=== PATIENT | female | born 1960 | race Caucasian/White ===

== ENCOUNTER 2022-06-25 14:16 | Emergency (ER) | payer MEDICAID ==
[~2022-06-25] VITALS: Ht 162.5 cm; Wt 77.1 kg
[2022-06-25 15:18] LABS: BASO % 0.4 % (0.0-1.0); EOS # 0.1 10*3/uL (0.0-0.4); EOS % 1.2 % (1.0-4.0); LYMPH # 1.7 10*3/uL (1.3-4.4); LYMPH % 23.4 % (27.0-41.0); MEAN CELL VOLUME 84.5 fl (81.0-99.0); MEAN PLATELET VOLUME 9.7 fl (9.6-12.3); MONO # 0.4 10*3/uL (0.1-1.0); MONO % 5.2 % (3.0-9.0); NEUT # 5.1 10*3/uL (2.3-7.9); NEUT % 69.5 % (47.0-73.0); PLATELET COUNT AUTOMATED 270 10*3/uL (130-400); RED BLOOD COUNT 4.85 10*6/uL (4.10-5.10); RED CELL DISTRI WIDTH 13.7 % (0-14.5); WHITE BLOOD COUNT 7.4 10*3/uL (4.8-10.8)
[2022-06-25 15:32] LABS: ALKALINE PHOSPHATASE 68 U/L (46-116); BUN 12 mg/dl (9-23); CHLORIDE 103 mmol/L (98-107); POTASSIUM 3.2 mmol/L (3.4-5.1); SGPT/ALT 25 U/L (10-49); TOTAL PROTEIN 6.5 gm/dL (6.0-8.0)
[2022-06-25] MEDS ORDERED: BENZONATATE100 M1 PO (16:56)
[2022-06-25] MEDS ORDERED: VIBRAMYCIN100 MG PO (16:56)
== END 2022-06-25 19:13 | disposition home or self-care (01) ==
LOC: ED 14:16
PROVIDERS: Nurse Practitioner Family
DX: J06.9 Acute upper respiratory infection, unspecified (principal); Z20.822 Contact with and (suspected) exposure to COVID-19; J44.1 Chronic obstructive pulmonary disease with (acute) exacerbation